=== PATIENT | female | born 1985 | race American Indian/Alaskan Native ===

== ENCOUNTER 2019-04-28 09:48 | Emergency (ER) | payer BC, OTHER ==
[2019-04-28 10:05] VITALS: BP 133/82
--- NOTE | 2019-04-28 11:25 | Emergency Department Report ---
ED General Adult HPI - General Chief complaint: Upper Respiratory Infection Stated complaint: HEADACHE,SINUS,CHEST PAIN Time Seen by Provider: 04/28/19 11:01 Source: patient Mode of arrival: Ambulatory Limitations: No Limitations - History of Present Illness Initial comments: This is a 33-year-old female with no prior medical history presents complaining of nasal drainage and yellow productive coughing for the past week and a half. Patient states that symptoms are not resolving. Patient denies fevers/chills/nausea vomiting diarrhea abdominal pain or chest pain - Related Data Previous Rx's Medication Instructions Recorded Last Taken Type Ondansetron [Zofran Odt] 4 mg PO Q6HR PRN #20 tab.rapdis 03/14/15 Unknown Rx Amoxicillin/K Clav Tab [Augmentin 1 tab PO Q12HR #20 tab 04/28/19 Unknown Rx 875 mg] Ibuprofen [Motrin 600 MG tab] 600 mg PO Q8H PRN #30 tablet 04/28/19 Unknown Rx Allergies Allergy/AdvReac Type Severity Reaction Status Date / Time hydrocodone Allergy Itching Verified 04/28/19 10:05 ED Review of Systems ROS: Stated complaint: HEADACHE,SINUS,CHEST PAIN Other details as noted in HPI Comment: All other systems reviewed and negative ED Past Medical Hx - Past Medical History Previous Medical History?: No - Surgical History Past Surgical History?: Yes Additional Surgical History: tonsillectomy - Social History Smoking Status: Never Smoker - Medications Home Medications: Home Medications Medication Instructions Recorded Confirmed Last Taken Type Ondansetron [Zofran Odt] 4 mg PO Q6HR PRN #20 tab.rapdis 03/14/15 Unknown Rx Amoxicillin/K Clav Tab [Augmentin 1 tab PO Q12HR #20 tab 04/28/19 Unknown Rx 875 mg] Ibuprofen [Motrin 600 MG tab] 600 mg PO Q8H PRN #30 tablet 04/28/19 Unknown Rx ED Physical Exam - General Limitations: No Limitations General appearance: alert, in no apparent distress - Head Head exam: Present: atraumatic, normocephalic - Eye Eye exam: Present: normal appearance - ENT ENT exam: Present: mucous membranes moist, other (Maxillary sinus tenderness) - Neck Neck exam: Present: normal inspection, full ROM. Absent: lymphadenopathy - Respiratory Respiratory exam: Present: normal lung sounds bilaterally. Absent: respiratory distress - Cardiovascular Cardiovascular Exam: Present: regular rate, normal rhythm. Absent: systolic murmur, diastolic murmur, rubs, gallop - GI/Abdominal GI/Abdominal exam: Present: soft, normal bowel sounds - Extremities Exam Extremities exam: Present: normal inspection - Back Exam Back exam: Present: normal inspection - Neurological Exam Neurological exam: Present: alert, oriented X3 - Psychiatric Psychiatric exam: Present: normal affect, normal mood - Skin Skin exam: Present: warm, dry, intact, normal color. Absent: rash ED Course Vital Signs 04/28/19 10:03 Temperature 99.3 F Pulse Rate 70 Respiratory 20 Rate Blood Pressure 133/82 O2 Sat by Pulse 100 Oximetry ED Medical Decision Making - Medical Decision Making 33-year-old female presents with acute bacterial sinusitis. Patient will be treated with antibiotics. Discussed patient to follow-up with primary care physician in 3 to 5 days. Vital signs are normal patient is in no acute distress. Patient had no respiratory distress Critical care attestation.: If time is entered above; I have spent that time in minutes in the direct care of this critically ill patient, excluding procedure time. ED Disposition Clinical Impression: Acute rhinosinusitis, Acute bacterial sinusitis Disposition: - TO HOME OR SELFCARE Is pt being admited?: No Does the pt Need Aspirin: No Condition: Stable Instructions: Sinusitis (ED) Additional Instructions: Make sure to follow up with the primary care physician as discussed. Take all your medications as you've been prescribed. If you have any worsening symptoms or develop new symptoms please return to ED immediately. Prescriptions: Amoxicillin/K Clav Tab [Augmentin 875 mg] 1 tab PO Q12HR #20 tab Ibuprofen [Motrin 600 MG tab] 600 mg PO Q8H PRN #30 tablet PRN Reason: Pain Referrals: INO ROJAS MD [Primary Care Provider] - 3-5 Days Forms: Work/School Release Form(ED) Time of Disposition: 11:31
== END 2019-04-28 11:49 | disposition home or self-care (01) ==
LOC: ED 09:48
DX: J01.80 Other acute sinusitis (principal); B96.89 Other specified bacterial agents as the cause of diseases classified elsewhere; Z90.89 Acquired absence of other organs; Z88.6 Allergy status to analgesic agent; Z79.899 Other long term (current) drug therapy
CPT/HCPCS: 99281

== ENCOUNTER 2020-10-07 12:25 | Emergency (ER) | payer SELFPAY | END 2020-10-07 15:58 | LOC: ED 12:25 ==

== ENCOUNTER 2021-08-12 09:55 | Outpatient (CLI) | payer MEDICAID ==
--- NOTE | 2021-08-12 14:05 | Vascular Lab Report ---
DUPLEX DOPPLER LOWER EXTREMITY VEINS, LEFT INDICATION / CLINICAL INFORMATION: I74.09 ARTERIAL EMBOLISM AND THROMBOSIS. TECHNIQUE: Duplex doppler imaging was performed through the veins of the left lower extremity using v enous compression and other maneuvers. COMPARISON: None available. FINDINGS: LEFT COMMON FEMORAL VEIN: Negative. LEFT FEMORAL VEIN: Negative. LEFT POPLITEAL VEIN: Acute thrombus in the setting of chronic thrombus. LEFT CALF VEINS: Acute thrombus in the setting of chronic thrombus within the peroneal veins. ADDITIONAL FINDINGS: None. IMPRESSION: 1. Acute on chronic nonocclusive DVT is visualized in the left popliteal and peroneal veins. The results were communicated by the schedule supervisor to Dr. Peres at 11:10 AM. Scribed by: Diamante Ruiz RDMS, AMYT, TRACE Scribed: 08/12/2021 12:30 PM I have reviewed the images, agree with this report, and edited this report as needed. Signer Name: Antwan Lea MD Signed: 08/12/2021 2:01 PM Workstation Name: [id number]
== END 2021-08-12 09:56 | disposition home or self-care (01) ==
LOC: VAS 09:55
PROVIDERS: ATTEND Internal Medicine Hematology & Oncology
DX: I82.432 Acute embolism and thrombosis of left popliteal vein (principal); I82.402 Acute embolism and thrombosis of unspecified deep veins of left lower extremity; I74.9 Embolism and thrombosis of unspecified artery